=== PATIENT | male | born 1995 | race Caucasian/White ===

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

== ENCOUNTER 2017-01-26 11:08 | Emergency (ER) | payer BC ==
[2017-01-26 11:13] VITALS: BP 129/76
[2017-01-26] MEDS ORDERED: DIPHTH,PERTUSS(ACELL),TET VAC 0.5 ML VIAL IM ONE ×2 (11:18→11:19)
--- NOTE | 2017-01-26 11:28 | ERNOTE ---
Medical Problem HPI - General Chief Complaint: Laceration Time Seen by Provider: 01/26/17 11:10 Source: patient Exam Limitations: no limitations - Immun/Allergies/Home Medications Allergies/Adverse Reactions: Allergies No Known Allergies Allergy (Verified 01/26/17 11:13) Home Medications: HOME MEDICATIONS Amox Tr/Potassium Clavulanate [Augmentin 875-125 Tablet] 875 mg PO Q12H #20 tab 01/26/17 [Last Taken Unknown] HYDROcodone/ACETAMINOPHEN [Camak 5-325] 1 - 2 tab PO QID PRN #12 tab 01/26/17 [ Last Taken Unknown] - History of Present History Narrative: Patient presents for laceration to the left ring finger just prior to presentation to the ER with a hedge clipper. The laceration involves the tip of the left ring finger involving the nail, patient is unaware of his last tetanus shot status. Review of Systems - Review of Systems Constitutional: Present: no symptoms reported Respiratory: Present: no symptoms reported Cardiology: Present: no symptoms reported Musculoskeletal: Present: other - linear laceration to the mid region of the distal left ring finger involving the dorsal and ventral aspect of the tip of the finger - Patient's Past Medical History Patient History - Medical: No pertinent hx Patient History - Cardiac/Respiratory: No pertinent hx Patient History - Cancer: No Hx of Cancer Patient History - Surgical Procedures: No surgical history - Social History Smoking Status: Never smoker Physical Exam - Physical Exam General Appearance: Present: wd/wn, alert, no apparent distress Extremity Exam: Present: other - there is a 1 cm superficial laceration extending from the middle of the nail of the left ring finger extending distally to the tip of the finger and around to the volar aspect of the left ring finger. Bleeding is controlled however the area is open and needs to be sutured. There is a smaller laceration lateral to that one approximately 0.3 cm in greatest length. ED Progress - Vital Signs Patient's Vital Signs:: I have reviewed the patient's vital signs. Vital Signs: Vital Signs 01/26/17 11:11 Temperature 36.6 C Pulse Rate 75 Respiratory 12 Rate Blood Pressure 129/76 O2 Sat by Pulse 99 Oximetry - X-Ray X-Ray #1 X-Ray: finger - Progress/Reassessment Chief Complaint: Laceration Plan - Plan Plan: This way this case was discussed just with a Dr. Gomez patient does have a laceration needs to be repaired a digital block was achieved with him 2 mL of lidocaine and epinephrine then a using 5-0 Prolene 5 sutures were placed in the larger laceration and 2 were placed in the smaller laceration a large suture was placed to hold the nail in place patient is to follow-up with Dr. Gomez he is to call the clinic tomorrow patient and patient's mother had good understanding of my verbal instructions Departure - Departure Clinical Impression: Fracture of distal phalanx of finger of left hand Laceration of finger of left hand with damage to nail Qualifiers: Encounter type: initial encounter Finger: ring finger Foreign body presence: without foreign body Qualified Code(s): S61.315A - Laceration without foreign body of left ring finger with damage to nail, initial encounter Disposition: Home self-care Condition: Good Instructions: Nail Bed Injury, [id number], Nail Bed Injury Additional Instructions: You must call the orthopedic clinic tomorrow morning and follow-up with orthopedic clinic as instructed. He will need a wound check in 48 hours and at that time the provider will inform you when to come back to have the sutures removed. He must keep the laceration dry and clean at all times and elevate left upper extremity. Please take the Antibiotics prescribed for you. Prescriptions: Amox Tr/Potassium Clavulanate [Augmentin 875-125 Tablet] 875 mg PO Q12H #20 tab HYDROcodone/ACETAMINOPHEN [Camak 5-325] 1 - 2 tab PO QID PRN #12 tab PRN Reason: Pain
[2017-01-26] MEDS ORDERED: ceFAZolin SODIUM 1 GM VIAL IM ONE (11:33)
[2017-01-26] MEDS ORDERED: ceFAZolin SODIUM 1 GM VIAL ONE (11:35)
== END 2017-01-26 12:04 | disposition home or self-care (01) ==
LOC: ER 11:08
DX: M84.445A Pathological fracture, left finger(s), initial encounter for fracture (principal); S61.315A Laceration without foreign body of left ring finger with damage to nail, initial encounter; W45.8XXA Other foreign body or object entering through skin, initial encounter; Y93.H2 Activity, gardening and landscaping; Y92.9 Unspecified place or not applicable; Z23 Encounter for immunization